=== PATIENT | male | born 1975 | race Caucasian/White ===

== ENCOUNTER → 2018-11-16 | Outpatient (CLI) | payer BC | LOC: LAB 12:26 | PROVIDERS: ATTEND Urology | DX: Z01.89 Encounter for other specified special examinations (principal); Z98.52 Vasectomy status | CPT/HCPCS: 89321 ==

== ENCOUNTER 2021-02-01 11:12 | Outpatient (CLI) | payer OTHER ==
[~2021-02-01] VITALS: Ht 167.7 cm; Wt 79.4 kg
[2021-02-01 10:55] VITALS: BP 156/101
[2021-02-01] MEDS ORDERED: diphenhydrAMINE 50 MG/ML INJ (BENADRYL) IV PRN (11:30)
[2021-02-01] MEDS ORDERED: ACETAMINOPHEN 500 MG TAB (TYLENOL) PO PRN (11:30)
[2021-02-01] MEDS ORDERED: EPINEPHrine INJECTION 1 MG/ML AMP IM PRN (11:30)
[2021-02-01] MEDS ORDERED: ONDANSETRON 4 MG/2 ML (SDV) Z0FRAN IV PRN (11:30)
[2021-02-01] MEDS ORDERED: CASIRIVIMAB/IMDEVIMAB 1,200 MG in NS (IVPB) 250 ML IV ONE (11:30)
[2021-02-01 12:40] VITALS: BP 158/95
== END 2021-02-01 13:20 | disposition home or self-care (01) ==
LOC: INFUSION 11:12
PROVIDERS: ATTEND Nurse Practitioner Family
DX: U07.1 COVID-19 (principal)